=== PATIENT | male | born 2000 | race Caucasian/White ===

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

== ENCOUNTER 2021-04-11 11:44 | Emergency (ER) | payer MEDICAID, OTHER, SELFPAY ==
[~2021-04-11] VITALS: Ht 182.9 cm; Wt 71.0 kg
[2021-04-11 11:44] VITALS: BP 120/71
[~2021-04-11 11:44] MED LIST changes: +ACET-683 PO; +HYDR-3715 PO; -MELA5TAB17 PO; +MELA5TAB36 PO; -NORCOTAB PO; -OLAN2.5T PO; +OLAN2.5T25 PO
== END 2021-04-11 11:56 | disposition left against medical advice (07) ==
LOC: M ED 11:44
DX: Z53.29 Procedure and treatment not carried out because of patient's decision for other reasons (principal)

== ENCOUNTER 2021-04-12 13:41 | Emergency (ER) | payer OTHER ==
[~2021-04-12] VITALS: Ht 182.9 cm; Wt 69.6 kg
[2021-04-12 15:21] VITALS: BP 116/60
== END 2021-04-12 15:22 | disposition home or self-care (01) ==
LOC: M ED 13:41
DX: R21 Rash and other nonspecific skin eruption (principal); B09 Unspecified viral infection characterized by skin and mucous membrane lesions; J45.909 Unspecified asthma, uncomplicated; F33.9 Major depressive disorder, recurrent, unspecified; F41.9 Anxiety disorder, unspecified; Z88.0 Allergy status to penicillin; F17.210 Nicotine dependence, cigarettes, uncomplicated; F12.20 Cannabis dependence, uncomplicated

== ENCOUNTER 2021-05-03 18:40 | Emergency (ER) | payer OTHER ==
[~2021-05-03] VITALS: Ht 182.9 cm; Wt 70.5 kg
[2021-05-03 18:40] VITALS: BP 133/69
== END 2021-05-03 21:20 | disposition left against medical advice (07) ==
LOC: M ED 18:40
DX: Z53.29 Procedure and treatment not carried out because of patient's decision for other reasons (principal)

== ENCOUNTER 2021-05-04 12:54 | Emergency (ER) | payer OTHER ==
[~2021-05-04] VITALS: Ht 182.9 cm; Wt 69.8 kg
[2021-05-04 14:37] LABS: BASO % 0.5 % (0.0-1.0); EOS # 0.1 10^3/uL (0.0-0.5); EOS % 1.9 % (0.0-3.0); HEMATOCRIT 42.3 % (42.0-52.0); LYMPH # 2.6 10^3/uL (1.5-5.0); LYMPH % 40.3 % (24.0-44.0); MEAN CORPUSCULAR HEMOGLOBIN 29.3 pg (27.0-33.0); MEAN CORPUSCULAR HGB CONC 33.1 g/dl (32.0-36.5); MEAN CORPUSCULAR VOLUME 88.5 fl (80.0-96.0); MONO # 0.4 10^3/uL (0.0-0.8); MONO % 5.7 % (2.0-8.0); NEUTROPHILS # 3.3 10^3/uL (1.5-8.5); NEUTROPHILS % 51.4 % (36.0-66.0); PLATELET COUNT, AUTOMATED 207 10^3/uL (150-450); RED BLOOD COUNT 4.78 10^6/uL (4.30-6.10); WHITE BLOOD COUNT 6.4 10^3/uL (4.0-10.0)
[2021-05-04 15:21] LABS: BLOOD UREA NITROGEN 17 MG/DL (7-18); CALCIUM LEVEL 8.6 MG/DL (8.5-10.1); CARBON DIOXIDE LEVEL 28 MEQ/L (21-32); CHLORIDE LEVEL 108 MEQ/L (98-107); CREATININE FOR GFR 0.68 MG/DL (0.70-1.30); GLUCOSE, FASTING 100 MG/DL (70-100); POTASSIUM SERUM 4.1 MEQ/L (3.5-5.1); SODIUM LEVEL 139 MEQ/L (136-145)
[2021-05-04 15:22] LABS: ALBUMIN 3.6 GM/DL (3.2-5.2); ALT/SGPT 32 U/L (12-78); BILIRUBIN,TOTAL 0.4 MG/DL (0.2-1.0); FREE T4 1.07 NG/DL (0.78-1.33); LIPASE 88 U/L (73-393); TOTAL PROTEIN 6.8 GM/DL (6.4-8.2)
[2021-05-04 15:56] VITALS: BP 111/59
== END 2021-05-04 15:57 | disposition home or self-care (01) ==
LOC: M ED 12:54
DX: L59.0 Erythema ab igne [dermatitis ab igne] (principal); Z88.0 Allergy status to penicillin; J30.2 Other seasonal allergic rhinitis; F17.210 Nicotine dependence, cigarettes, uncomplicated

== ENCOUNTER 2022-05-27 14:24 | Emergency (ER) | payer OTHER ==
[~2022-05-27] VITALS: Ht 182.9 cm; Wt 64.3 kg
[~2022-05-27 14:24] MED LIST changes: +ALBU2.5V10 INH; -ALBU83IN INH
[2022-05-27 15:52] LABS: HEMATOCRIT 49.6 % (42.0-52.0); HEMOGLOBIN 16.6 g/dl (13.5-17.5); MEAN CORPUSCULAR HEMOGLOBIN 30.2 pg (27.0-33.0); MEAN CORPUSCULAR HGB CONC 33.5 g/dl (32.0-36.5); MEAN CORPUSCULAR VOLUME 90.2 fl (80.0-96.0); PLATELET COUNT, AUTOMATED 231 10^3/uL (150-450); WHITE BLOOD COUNT 11.3 10^3/uL (4.0-10.0)
[2022-05-27 16:04] LABS: ETHYL ALCOHOL (ETHANOL) < 0.003 % (0.000-0.010)
[2022-05-27 16:05] LABS: ACETAMINOPHEN LEVEL < 2.0 UG/ML (10.0-20.0)
[2022-05-27 16:06] LABS: SALICYLATE LEVEL < 3.0 MG/DL (<30)
[2022-05-27 16:10] LABS: ALBUMIN 4.4 G/DL (3.2-5.2); ALKALINE PHOSPHATASE 106 U/L (46-116); ALT/SGPT 19 U/L (7.0-40); AST/SGOT 15 U/L (<34); BILIRUBIN,DIRECT 0.5 MG/DL (<0.4); BILIRUBIN,TOTAL 1.3 MG/DL (0.3-1.2); BLOOD UREA NITROGEN 16 MG/DL (9-23); CALCIUM LEVEL 8.9 MG/DL (8.5-10.1); CARBON DIOXIDE LEVEL 31 MMOL/L (20-31); CHLORIDE LEVEL 99 MMOL/L (98-107); CREATININE FOR GFR 0.72 MG/DL (0.70-1.30); GLUCOSE, FASTING 104 MG/DL (60-100); POTASSIUM SERUM 3.8 MMOL/L (3.5-5.1); SODIUM LEVEL 138 MMOL/L (136-145); THYROID STIMULATING HORMONE 0.899 uIU/ML (0.48-4.17); TOTAL PROTEIN 7.6 G/DL (5.7-8.2)
[2022-05-27] MEDS ORDERED: MUPI2OI TOP (18:12)
[2022-05-27 18:14] VITALS: BP 113/87
== END 2022-05-27 18:20 | disposition home or self-care (01) ==
LOC: M ED 14:24
DX: D23.0 Other benign neoplasm of skin of lip (principal); R45.88 Nonsuicidal self-harm; F17.200 Nicotine dependence, unspecified, uncomplicated; Z88.1 Allergy status to other antibiotic agents

== ENCOUNTER 2022-05-30 15:21 | Emergency (ER) | payer OTHER ==
[~2022-05-30] VITALS: Ht 182.9 cm; Wt 65.5 kg
[~2022-05-30 15:21] MED LIST changes: +MUPI2OI TOP
[2022-05-30] MEDS ORDERED: KETOROLAC 30 MG/ML 1ML VIAL IV ONE (17:05)
[2022-05-30] MEDS ORDERED: NS 1,000 ML IV ONE (17:05)
[2022-05-30] MEDS ORDERED: ONDANSETRON 4MG 2ML VIAL IV ONE (17:05)
[2022-05-30] MEDS ORDERED: ISOVUE-370 76% 100ML VIAL As Ordered ONE (17:39)
[2022-05-30 17:46] LABS: BASO # 0.1 10^3/uL (0.0-0.2); BASO % 0.5 % (0.0-1.0); EOS # 0.2 10^3/uL (0.0-0.5); EOS % 1.5 % (0.0-3.0); HEMATOCRIT 38.9 % (42.0-52.0); LYMPH # 1.5 10^3/uL (1.5-5.0); LYMPH % 11.2 % (24.0-44.0); MEAN CORPUSCULAR HEMOGLOBIN 30.7 pg (27.0-33.0); MEAN CORPUSCULAR HGB CONC 33.4 g/dl (32.0-36.5); MEAN CORPUSCULAR VOLUME 91.7 fl (80.0-96.0); MONO # 1.2 10^3/uL (0.0-0.8); MONO % 8.8 % (2.0-8.0); NEUTROPHILS # 10.5 10^3/uL (1.5-8.5); NEUTROPHILS % 77.6 % (36.0-66.0); PLATELET COUNT, AUTOMATED 177 10^3/uL (150-450); RED BLOOD COUNT 4.24 10^6/uL (4.30-6.10); WHITE BLOOD COUNT 13.5 10^3/uL (4.0-10.0)
[2022-05-30 17:57] LABS: LIPASE 34 U/L (12-53)
[2022-05-30 18:03] LABS: ALBUMIN 3.4 G/DL (3.2-5.2); ALKALINE PHOSPHATASE 89 U/L (46-116); ALT/SGPT 13 U/L (7.0-40); AST/SGOT 11 U/L (<34); BILIRUBIN,DIRECT 0.4 MG/DL (<0.4); BILIRUBIN,TOTAL 0.9 MG/DL (0.3-1.2); TOTAL PROTEIN 6.1 G/DL (5.7-8.2)
[2022-05-30 18:14] LABS: RSV AMPLIFICATION NEGATIVE (NEGATIVE)
[2022-05-30] MEDS ORDERED: AZITHROMYCIN 250MG TABLET PO ONE (18:40)
[2022-05-30 19:14] LABS: HEPATITIS B SURFACE ANTIGEN NEGATIVE (NEGATIVE)
[2022-05-30 19:35] LABS: HEPATITIS C VIRUS ABY INDEX 0.1 INDEX (<0.8)
[2022-05-30 19:36] LABS: HEPATITIS B CORE ANTIBODY IGM NEGATIVE (NEGATIVE)
[2022-05-30] MEDS ORDERED: AZIT-12 PO (19:37)
[2022-05-30 19:51] VITALS: BP 105/69
== END 2022-05-30 20:03 | disposition home or self-care (01) ==
LOC: M ED 15:21
DX: J02.0 Streptococcal pharyngitis (principal); Z88.1 Allergy status to other antibiotic agents
CPT/HCPCS: 74177; 80047; 80076; 83690; 83880; 85025; 86705; 86709; 86803; 87340; 87631; 87880; 96374; 96375; 99284; J1885; J2405; Q9967

== ENCOUNTER 2023-01-03 12:05 | Inpatient (IN) | payer OTHER, SELFPAY ==
[~2023-01-03] VITALS: Ht 182.9 cm; Wt 65.9 kg
[~2023-01-03 12:05] MED LIST changes: +AZIT-12 PO
[2023-01-03 12:44] LABS: HEMATOCRIT 46.9 % (42.0-52.0); HEMOGLOBIN 15.5 g/dl (13.5-17.5); MEAN CORPUSCULAR HEMOGLOBIN 30.7 pg (27.0-33.0); MEAN CORPUSCULAR VOLUME 92.9 fl (80.0-96.0); PLATELET COUNT, AUTOMATED 217 10^3/uL (150-450); RED BLOOD COUNT 5.05 10^6/uL (4.30-6.10); WHITE BLOOD COUNT 5.6 10^3/uL (4.0-10.0)
[2023-01-03 13:05] LABS: ETHYL ALCOHOL (ETHANOL) 0.003 % (0.000-0.010)
[2023-01-03 13:07] LABS: ALBUMIN 3.8 G/DL (3.2-5.2); ALKALINE PHOSPHATASE 93 U/L (46-116); ALT/SGPT 22 U/L (7.0-40); AST/SGOT 25 U/L (<34); BILIRUBIN,DIRECT 0.2 MG/DL (<0.4); BILIRUBIN,TOTAL 0.5 MG/DL (0.3-1.2); BLOOD UREA NITROGEN 14 MG/DL (9-23); CALCIUM LEVEL 8.3 MG/DL (8.5-10.1); CARBON DIOXIDE LEVEL 30 MMOL/L (20-31); CHLORIDE LEVEL 104 MMOL/L (98-107); CREATININE FOR GFR 0.76 MG/DL (0.70-1.30); GLOMERULAR FILTRATION RATE > 60.0 (>60); GLUCOSE, FASTING 98 MG/DL (60-100); POTASSIUM SERUM 4.3 MMOL/L (3.5-5.1); SALICYLATE LEVEL < 3.0 MG/DL (<30); SODIUM LEVEL 140 MMOL/L (136-145); TOTAL PROTEIN 6.7 G/DL (5.7-8.2)
[2023-01-03] MEDS ORDERED: HOME MED LIST COMPLETE! XX SCH (13:10)
[2023-01-03 13:29] LABS: BARBITURATES URINE NEGATIVE (NEGATIVE); BENZODIAZEPINES URINE NEGATIVE (NEGATIVE); COCAINE METABOLITE URINE NEGATIVE (NEGATIVE); METHADONE URINE NEGATIVE (NEGATIVE); OPIATES URINE NEGATIVE (NEGATIVE); PHENCYCLIDINE URINE NEGATIVE (NEGATIVE)
[2023-01-03 13:31] LABS: AMPHETAMINES LEVEL URINE POSITIVE (NEGATIVE); CANNABINOIDS URINE POSITIVE (NEGATIVE)
[2023-01-03] MEDS ORDERED: diphenhydrAMINE 25MG CAP PO PRN (18:35)
[2023-01-03] MEDS ORDERED: IBUPROFEN 400MG TAB PO PRN (18:35)
[2023-01-03] MEDS ORDERED: traZODone 50 MG TAB PO PRN (18:35)
[2023-01-03] MEDS ORDERED: MAALOX 30 ML SUSP *UDC PO PRN (18:35)
[2023-01-03] MEDS ORDERED: MOM 30ML SUSPENSION UDC PO PRN (18:35)
[2023-01-03] MEDS ORDERED: OLANZapine ORAL DISINTEGRATING TAB 5MG PO PRN (18:35)
[2023-01-03] MEDS ORDERED: ACETAMINOPHEN TAB 650MG DOSE (2X325MG) PO PRN (18:35)
[2023-01-03 20:40] VITALS: BP 108/66; TEMP 96.8; O2SAT 100
[2023-01-03] MEDS: NICOTINE 21MG/24HR 1 EA TRANSDERMAL TD PRN (20:54)
[2023-01-04 16:31] VITALS: BP 118/63; TEMP 98.2; O2SAT 99
[2023-01-04] MEDS: NICOTINE 21MG/24HR 1 EA TRANSDERMAL TD PRN (20:42)
[2023-01-05 06:28] VITALS: BP 109/53; TEMP 98.2; O2SAT 98
== END 2023-01-05 13:54 | disposition home or self-care (01) | DRG 776 ==
LOC: M ED 12:05 → M ED INP 18:33 → M PSY 20:38
PROVIDERS: ADMIT Student in an Organized Health Care Education/Training Program; ATTEND Student in an Organized Health Care Education/Training Program
DX: F15.94 Other stimulant use, unspecified with stimulant-induced mood disorder (principal); R45.851 Suicidal ideations; F17.210 Nicotine dependence, cigarettes, uncomplicated; F12.90 Cannabis use, unspecified, uncomplicated; Z88.0 Allergy status to penicillin; Z20.822 Contact with and (suspected) exposure to COVID-19; Z91.52 Personal history of nonsuicidal self-harm; Z63.5 Disruption of family by separation and divorce; F60.89 Other specific personality disorders

== ENCOUNTER 2023-05-15 19:35 | Emergency (ER) | payer OTHER | END 2023-05-15 19:58 | disposition left against medical advice (07) | LOC: M ED 19:35 | DX: Z53.21 Procedure and treatment not carried out due to patient leaving prior to being seen by health care provider (principal) ==